=== PATIENT | female | born 1955 | race Caucasian/White ===

== ENCOUNTER → 2021-02-20 07:46 | Outpatient (CLI) | payer MEDICARE, SELFPAY ==
--- NOTE | 2021-02-20 07:59 | CDU_ITS ---
Reason For Study: NEAR SYCOPE Rt. Velocities/BP Lt. Velocities/BP Prox CCA 80/23 cm/sec. Prox CCA 83/23 cm/sec. Mid CCA 57/19 cm/sec. Mid CCA 64/17 cm/sec. Dist CCA 73/23 cm/sec. Dist CCA 62/25 cm/sec. Prox ICA 63/13 cm/sec. Prox ICA 45/15 cm/sec. Mid ICA 73/28+ cm/sec. Mid ICA 86/30 cm/sec. Dist ICA 81/34 cm/sec. Dist ICA 62/25 cm/sec. Rt. ICA/CCA = 1.1. Lt. ICA/CCA = 1.4. Prox ECA 71/20 cm/sec. Prox ECA 72/14 cm/sec. Rt. Vert. 43/13 cm/sec. Lt. Vert. 59/25 cm/sec. Right Extracranial There is homogeneous, smooth atherosclerotic plaque noted in the right common carotid artery. There is homogeneous, smooth atherosclerotic plaque noted in the right internal carotid artery. There is homogeneous, irregular atherosclerotic plaque noted in the right external carotid artery. Antegrade flow is noted in the right vertebral artery. There is homogeneous, smooth atherosclerotic plaque noted in the right bulb. Left Extracranial There is homogeneous, smooth atherosclerotic plaque noted in the left common carotid artery. There is homogeneous, smooth atherosclerotic plaque noted in the left internal carotid artery. There is homogeneous, smooth atherosclerotic plaque noted in the left external carotid artery. Antegrade flow is noted in the left vertebral artery. Procedure Carotid Duplex 42451. Exam performed in department. VL/Carotid Duplex Ultrasound Interpretation Summary Mild (<50%) stenosis right extracranial internal carotid. Mild (<50%) stenosis left extracranial internal carotid. Flow within the vertebral arteries is antegrade bilaterally. Ordering Physician: Reyna Soler Referring Physician: Reyna Soler Performed By: Sharla Bacon, RDCS, RVT
--- NOTE | 2021-02-20 08:00 | ECHOD_ITS ---
Reason For Study: Near Syncope Procedure This was a 2D Doppler, Color Flow transthoracic echocardiogram. Myocardial strain analysis was performed in this exam to aid in the assessment of cardiac function. Exam performed in department. Left Ventricle Normal LV size. Left ventricular systolic function is normal. The estimated ejection fraction is 60 %. Stage 1 diastolic dysfunction. Right Ventricle Normal RV size. Normal systolic function. Atria Normal left atrium. Normal right atrium. Mitral Valve Normal mitral valve. Tricuspid Valve Normal tricuspid valve. Mild tricuspid valve insufficiency. Pulmonary artery systolic pressure is 30 mmHg. Aortic Valve Normal aortic valve. Trisinus/trileaflet aortic valve. Pulmonic Valve Normal pulmonic valve. Great Vessels Normal aortic root. The pulmonary artery is normal size. Normal inferior vena cava. Pericardium/Pleural No pericardial effusion. MMode/2D Measurements & Calculations LVIDd: 4.6 cm IVSd: 0.94 cm Ao root diam: 3.2 cm LVIDs: 2.8 cm LVPWd: 0.87 cm LA dimension: 3.7 cm RVDd: 3.8 cm FS: 39.4 % LAV(MOD-bp): 53.8 ml LA A4 area: 16.0 cm2 RA A4 area: 19.4 cm2 LAV(MOD-bp) Indexed: 33.8 ml/m2 LAV(MOD-sp2): 44.6 ml LAV(MOD-sp4): 40.3 ml Time Measurements MV dec time: 0.22 sec Doppler Measurements & Calculations MV E max zhou: 47.2 cm/sec Lat Peak E' Zhou: 9.0 cm/sec Med Peak E' Zhou: 7.2 cm/sec MV A max zhou: 67.6 cm/sec E/E' lat: 5.2 E/E' med: 6.5 MV E/A: 0.70 MV V2 max: 86.8 cm/sec MV P1/2t max zhou: 66.9 cm/sec Ao V2 max: 99.0 cm/sec MV max P.0 mmHg MV P1/2t: 86.1 msec Ao max P.9 mmHg MV V2 mean: 37.8 cm/sec MV dec slope: 227.4 cm/sec2 MV mean P.71 mmHg MVA(P1/2t): 2.6 cm2 MV V2 VTI: 28.2 cm LV V1 max: 91.0 cm/sec PA V2 max: 84.7 cm/sec LV V1 max P.3 mmHg PI dec slope: 116.5 cm/sec2 TR max zhou: 258.6 cm/sec TR max P.8 mmHg ECHO/Echo Complete Interpretation Summary Normal LV size. Left ventricular systolic function is normal. The estimated ejection fraction is 60 %. Stage 1 diastolic dysfunction. The global longitudinal strain is normal. The global longitudinal strain = -18. 5 % (normal). Ordering Physician: Reyna Soler Referring Physician: Reyna Soler Performed By: Derrell Ortiz RCS
== END ==
PROVIDERS: PCP Internal Medicine; Referring Provider Internal Medicine; Visit Provider Internal Medicine
DX: R55 Syncope and collapse (principal)
CPT/HCPCS: 93225; 93226; 93306; 93880

== ENCOUNTER → 2021-02-22 07:11 | Outpatient (CLI) | payer MEDICARE, SELFPAY ==
--- NOTE | 2021-02-22 07:22 | MRI_ITS ---
EXAM: MR HEAD WITHOUT AND WITH INTRAVENOUS CONTRAST : 1955 CLINICAL INDICATION: DIZZINESS, NEAR SYNCOPE, hx breast ca TECHNIQUE: Multiplanar and multisequence MR images of the brain were obtained without and with intravenous contrast. This report was created using [employer] report [employer] technology. CONTRAST: 10ml IV Dotarem COMPARISON: None. FINDINGS: BRAIN AND EXTRA-AXIAL SPACES: Unremarkable. No intra- or extra-axial hemorrhage. No evidence of acute infarct. No intracranial mass or mass effect. There is preservation of the jimenez/white matter interface. Posterior fossa structures are unremarkable. Ventricles are appropriate for age. No hydrocephalus. Basal cisterns are patent. No abnormal contrast enhancement. SELLA: Unremarkable. Normal sella turcica, pituitary gland, infundibular stalk, optic chiasm and hypothalamus. AUDITORY SYSTEM: Unremarkable. The internal auditory canals are patent. BONES/JOINTS: Unremarkable. No discrete lytic or blastic abnormalities. SINUSES: Unremarkable as visualized. Clear. MASTOID AIR CELLS: Unremarkable as visualized. Clear. ORBITS: Unremarkable as visualized. Both globes, extraocular muscles, optic nerves and retrobulbar fat appear unremarkable. VASCULATURE: Unremarkable as visualized. Normal flow voids in the major intracranial circulation. MRI/Brain W/WO Contrast IMPRESSION: Normal MRI brain with and without contrast. at 1623 Reported and signed by: Star Frazier MD Electronically Signed: Star Frazier MD at 16:22 EDT Tel , Service support ,
[2021-02-22 07:50] LABS: CREATININE FINGERSTICK 0.7 mg/dL (0.55-1.02); EGFR FINGERSTICK > 60.0000 mL/min (>60)
== END ==
PROVIDERS: PCP Internal Medicine; Referring Provider Internal Medicine; Visit Provider Internal Medicine
DX: R55 Syncope and collapse (principal); R42 Dizziness and giddiness
CPT/HCPCS: 70553; A9575

== ENCOUNTER → 2021-12-01 | Outpatient (CLI) | payer MEDICARE, SELFPAY | END | disposition home or self-care (01) | LOC: LABSPEC 16:35 | PROVIDERS: PCP Internal Medicine; Referring Provider Internal Medicine Hematology & Oncology; Visit Provider Internal Medicine Hematology & Oncology | DX: D64.9 Anemia, unspecified (principal) | CPT/HCPCS: 86850; 86900; 86901; 86920; 86922 ==

== ENCOUNTER → 2021-12-04 | Outpatient (CLI) | payer MEDICARE, SELFPAY ==
[2021-12-04 09:12] VITALS: BP 98/56; PULSE 100; RESP 16; TEMP 36.9; O2SAT 97; BMI 19.6
[2021-12-04 09:49] VITALS: BP 104/57; PULSE 92; RESP 16; TEMP 37.2; O2SAT 97
[2021-12-04 10:49] VITALS: BP 113/58; PULSE 85; RESP 16; TEMP 37.1; O2SAT 100
[2021-12-04 11:33] VITALS: BP 109/60; PULSE 86; RESP 16; TEMP 36.9; O2SAT 100
== END | disposition home or self-care (01) ==
LOC: MEDOUTP 08:53
PROVIDERS: PCP Internal Medicine; Referring Provider Internal Medicine Hematology & Oncology; Visit Provider Internal Medicine Hematology & Oncology
DX: C78.01 Secondary malignant neoplasm of right lung (principal); C78.02 Secondary malignant neoplasm of left lung; C80.1 Malignant (primary) neoplasm, unspecified
CPT/HCPCS: 36430; 86850; 86900; 86901; 86920; 86922; J7030; P9016; A4216

== ENCOUNTER 2021-12-21 19:32 | Emergency (ER) | payer MEDICARE, SELFPAY ==
[2021-12-21 19:33] VITALS: BP 121/92; PULSE 105; RESP 16; TEMP 36.4; O2SAT 98; BMI 19.5
[2021-12-21 19:36] VITALS: BP 121/92; PULSE 105; RESP 16; TEMP 36.4; O2SAT 98
--- NOTE | 2021-12-21 19:57 | EX.ED.UPPERE ---
HPI History of Present Illness Chief Complaint: Upper Extremity Injury Narrative Narrative: Patient presents with her sisters because of hand pain and swelling and discoloration. She has history of metastatic breast carcinoma and is undergoing radiation therapy for tumors on her right shoulder and right upper extremity. She has had swelling of her right hand for at least 2 weeks. On 513, 13 days ago, she had an ultrasound performed which showed superficial thrombophlebitis of the right upper extremity. She was placed on Lovenox and takes it daily. They were concerned because they thought her right hand was discolored this evening. Upon arrival to the emergency department, they state that the discoloration has resolved. Her sisters state that they were told to get a Doppler because of the discoloration of her right hand that has spontaneously resolved. She denies any other symptoms. [facility] Medical History Breast cancer Home Medications enoxaparin 40 mg SUBCUT BID 12/21/21 [History Last Taken Unknown] Allergy/AdvReac Type Severity Reaction Status Date / Time No Known Allergies Allergy Verified 12/21/21 19:36 Social History Smoking Status: Never smoker ROS ROS ED ROS Narrative Constitutional: No fever, no chills. HEENT: No sore throat. No neck pain. No loss of vision. No rhinorrhea. Cardiovascular: No chest pain. No palpitations. No pedal edema. Respiratory: No cough, no shortness of breath. Abdominal: No abdominal pain. No nausea. No vomiting. Genitourinary: No dysuria. No hematuria. Musculoskeletal: Right hand pain, swelling, and discoloration. Discoloration has resolved. Neurologic: No headaches. No dizziness. No lightheadedness. Skin: No rash. Right hand discolored, resolved Psychiatric: No depression. No anxiety. EXAM Physical Exam Narrative Exam Narrative: Afebrile. Vital signs noted. HEENT: Normocephalic. Atraumatic. PERRL, EOMI. Neck soft and supple. No point tenderness or step off. Cardiovascular: Regular rate and rhythm. No murmurs, rubs, or gallops appreciated. Respiratory: No tachypnea. Lungs clear to auscultation bilaterally. Gastrointestinal: Abdomen soft, nontender, with normoactive bowel sounds. No rebound or guarding. Neurological: Awake. Alert. Nonfocal, nonlateralizing. Skin: No rash. Normal color. No pallor. Musculoskeletal: No pedal edema. Positive edema of right hand. Palpable radial pulse. No noted discoloration. Multiple tumors on right upper arm. Range of motion of right shoulder limited secondary to large tumors. 1 large tumor on right shoulder. Const Vital Signs: 12/21/21 19:33 12/21/21 19:36 Temperature 97.5 F L 97.5 F L Temperature Source Temporal Temporal Pulse Rate 105 H 105 H Respiratory Rate 16 16 Blood Pressure 121/92 H 121/92 H Blood Pressure Mean 101 101 Pulse Ox 98 98 Oxygen Delivery Method Room Air Room Air MDM MDM MDM Narrative Medical decision making narrative: Patient does have a palpable radial pulse. She does have noted swelling. She is already on Lovenox. I had a lengthy discussion with the patient and her sisters. Nursing was able to Doppler a good radial pulse. We will attempt to obtain a venous duplex of her right upper extremity. I do feel that she may have swelling secondary to compression of the veins of her right upper extremity secondary to these large metastatic tumors. However, ultrasound of the upper extremity is unable to be performed in the emergency department at this hour. I will write her an order to have it performed tomorrow. At this point in time, given that she has a strong radial pulse, I feel she be discharged safely home with follow-up. Return instructions to the emergency department were reviewed. She will continue her Lovenox. Disposition is discharged home in stable condition. Discharge Plan Triage Chief Complaint: Upper Extremity Injury ED Provider: Melvin Quintana Dx/Rx/DC Orders Clinical Impression: Swelling of right hand, Metastatic breast carcinoma Instructions: ED Peripheral Edema, Unilateral Prescriptions: No Action enoxaparin 40 mg/0.4 mL syringe 40 mg subcut BID RF: 0 Other Ambulatory Orders: Venous Duplex US, Unilateral (Routine) Facility: [facility] - Location: [facility] Ordered By: Melvin Quintana Primary Care Provider: Reyna Soler Referrals: Reyna Soler DO [Primary Care Provider] - Activity Restrictions/Additional Instructions: You have a strong radial pulse on your right wrist. Your hand is normal color, but still swollen. Have ultrasound of your right upper extremity performed tomorrow. Follow-up with your doctors as soon as possible. Disposition Disposition: Home, Self Care
== END 2021-12-21 21:08 | disposition home or self-care (01) ==
PROVIDERS: Emergency Provider Emergency Medicine; PCP Internal Medicine; Visit Provider Emergency Medicine
DX: M79.89 Other specified soft tissue disorders (principal); C79.9 Secondary malignant neoplasm of unspecified site; C50.919 Malignant neoplasm of unspecified site of unspecified female breast; Z79.01 Long term (current) use of anticoagulants
CPT/HCPCS: 99283

== ENCOUNTER 2021-12-22 12:04 | Emergency (ER) | payer MEDICARE, SELFPAY ==
[2021-12-22 12:05] VITALS: BP 116/58; PULSE 96; RESP 15; TEMP 36.4; O2SAT 99; BMI 19.5
--- NOTE | 2021-12-22 12:27 | EDS_ITS ---
HPI History of Present Illness Chief Complaint: Wound Informant: patient Narrative Narrative: Patient presents secondary to bleeding from right axillary wound. She has a history of metastatic breast cancer with lesions to the right chest and right arm. She was seen in the ER yesterday secondary to arm swelling with hand discoloration. She came in today for a venous Doppler of her arm. While they were scanning her a scab was knocked off one of the little nodules in her axilla and was bleeding. When cardiovascular staff called Dr. Posey he asked that the patient come to the ER for evaluation of the bleeding wound. [facility] Medical History Breast cancer Home Medications enoxaparin 40 mg SUBCUT BID 12/21/21 [History Last Taken Unknown] Allergy/AdvReac Type Severity Reaction Status Date / Time No Known Allergies Allergy Verified 12/22/21 12:07 Social History Smoking Status: Never smoker ROS ROS ED Constitutional Constitutional ED: Denies chills or fever(s) Eyes Eyes: Denies change in vision ENT ENT ED: Denies sore throat Cardiovascular Cardiovascular: Denies chest pain Respiratory/Chest Respiratory/Chest: Denies cough or dyspnea Gastrointestinal Gastrointestinal: Denies abdominal pain, nausea or vomiting Musculoskeletal Musculoskeletal: Denies back pain Neurologic Neurologic: Denies headache(s) or weakness Allergic/Immunologic Allergic/Immunologic ED: Denies urticaria EXAM Physical Exam Const Vital Signs: 12/22/21 12:05 Temperature 97.6 F L Temperature Source Temporal Pulse Rate 96 Respiratory Rate 15 Blood Pressure 116/58 L Blood Pressure Mean 77 Pulse Ox 99 Oxygen Delivery Method Room Air Positive well nourished and well developed General Appearance ED: well developed HEENT Reports moist mucous membranes Eyes PERRL and EOMs intact bilaterally Neck supple Chest Wall inspection of chest normal and palpation of chest normal Resp normal respiratory effort and clear to auscultation bilaterally Cardio regular rate and regular rhythm GI non-tender Palpation: soft Extremity Extremity Narrative: Nodules and tumors noted to the upper portion of the right upper extremity, chest wall, axilla. There is a small nodule in the axilla with scab in place. No active bleeding at this time. Mild right hand edema noted. Neuro oriented x3 Sensorium / Orientation: alert MDM MDM Treatment and Re-Evaluation Narrative: Wound is cleansed. Surgifoam and occlusive dressing is applied. Wound is rechecked after 20 minutes and reveals no further bleeding. Patient be discharged with family. Discharge Plan Triage Chief Complaint: Wound ED Provider: Jacqueline Leos Dx/Rx/DC Orders Clinical Impression: Visit for wound check Instructions: Wound Care Prescriptions: No Action enoxaparin 40 mg/0.4 mL syringe 40 mg subcut BID RF: 0 Primary Care Provider: Reyna Soler Referrals: Reyna Soler DO [Primary Care Provider] - Vahid Posey DO [STAFF PHYSICIAN] - Keep [facility] appointment Disposition Disposition: Home, Self Care
[2021-12-22 13:16] VITALS: RESP 16
== END 2021-12-22 13:16 | disposition home or self-care (01) ==
LOC: ED 12:47
PROVIDERS: Emergency Provider Emergency Medicine; PCP Internal Medicine; Visit Provider Emergency Medicine
DX: S41.101A Unspecified open wound of right upper arm, initial encounter (principal); R60.0 Localized edema; X58.XXXA Exposure to other specified factors, initial encounter; Y92.239 Unspecified place in hospital as the place of occurrence of the external cause; Z79.01 Long term (current) use of anticoagulants; M79.89 Other specified soft tissue disorders
CPT/HCPCS: 93971; 99282; A4216

== ENCOUNTER → 2021-12-22 | Outpatient (CLI) | payer MEDICARE, SELFPAY ==
--- NOTE | 2021-12-22 10:40 | VDUE_ITS ---
Reason For Study: Swelling Right Proximal Right jugular vein is spontaneous, widely patent, phasic, with no intraluminal echogenicity noted. Right Sublcavan vein with rouleaux flow noted, little continuous flow, noncompressible. Right Lower Arm Right radial vein is compressible. Right ulnar vein is compressible. Right Arm Right Axillary vein with rouleaux flow noted. Axillary vein is compressible. Right brachial vein is compressible. Right cephalic vein is compressible. Right basilic vein is compressible. Patient Safety Preliminary report to [place]at[place] RAE @ Dr. Posey office. Per Dr. Posey, take patient ED for wound care of area that was bleeding. VL/Venous Duplex US, Unilateral Interpretation Summary Abnormal flow noted in the right subclavian vein which is not compressible conc erning for acute deep vein thrombosis. Abnormal flow right axillary vein with sluggish circular flow Patent and compressible right upper extremity cephalic and basilic superficial veins. Ordering Physician: Melvin Quintana Referring Physician: Reyna Soler D.O. Performed By: Erin Garcia RVT ?
== END | disposition home or self-care (01) ==
LOC: CVS 10:38
PROVIDERS: PCP Internal Medicine; Referring Provider Emergency Medicine; Visit Provider Emergency Medicine
DX: M79.89 Other specified soft tissue disorders (principal)
CPT/HCPCS: 93971

== ENCOUNTER → 2022-04-06 | Outpatient (CLI) | payer MEDICARE, SELFPAY ==
--- NOTE | 2022-04-06 | FLU_PTH ---
PATIENT: ARISTIDES JUNE LOC: [facility]#:[id number] AGE/SX: 66/F ROOM: RE04/06/[address]: Dr. Vahid Posey DO : 1955 BED: DIS: 04/06/2022 SPEC #: [id number] RECD: 04/06/22 14:26 STATUS: RICKY LUCIANA #: [id number] NESSA: 04/06/22 00:[address]: Vahid Posey DEPT: CYTOLOGY RECD BY: Samaria Pugh ENTERED: 04/09/22 08:33 SP TYPE: Fluid OTHR DR: Dr. Reyna Soler DO Tissues: THORACIC FLUID Procedures: Special Stain Group II Surgery Specimen Level IV Cytospin Fluid HEADER OPERATION: Ultrasound-guided thoracentesis, right PRE-OP DIAGNOSIS: Right pleural effusion TISSUE SUBMITTED: Thoracentesis fluid for cytology DIAGNOSIS CYTOLOGY Thoracentesis fluid for cytology (cytospin and cell block): Malignant cells present derived from metastatic poorly differentiated non-small cell carcinoma. See comment. SJ:molly 04/10/2022 COMMENT Immunohistochemistry ([id number]) supports the above diagnosis. IHC profile is noncontributory for primary site of origin. Correlation with clinical, radiologic findings and appropriate follow up are necessary. CYTOLOGY STUDY Slides are reviewed. CYTOLOGY GROSS Received is 50 ml of red cloudy fluid labeled with the patient's name and and designated per the requisition as thoracentesis. Submitted for cytology preparation including cell block. / molly 04/09/2022 TC:0 CPT: 77090, 86919
--- NOTE | 2022-04-06 | IMM_PTH ---
PATIENT: ARISTIDES JUNE LOC: [facility]#:[id number] AGE/SX: 66/F ROOM: RE04/06/[address]: Dr. Vahid Posey DO : 1955 BED: DIS: 04/06/2022 SPEC #: [id number] RECD: 04/10/22 12:13 STATUS: RICKY REQ #: [id number] NESSA: 04/06/22 00:[address]: Vahid Posey DEPT: IMMUNOHISTOCHEMISTRY RECD BY: Alia Dwyer ENTERED: 04/10/22 12:15 SP TYPE: IMMUNO OTHR DR: Dr. Reyna Soler DO Tissues: THORACIC FLUID Procedures: RCC (add) Mickey Ret (add) CK20 (add) CK5-6 (add) CK7 (add) CK8 (add) E-CAD (add) HEP PAR (add) HER2 CHIRAG (add) MACRO (add) MAMM (add) NY (add) TTF1 (add) Vimentin (add) Pankeratin (add) GATA3 (add) P40 (add) ER (initial) PHYSICIAN & INSTITUTION [address] [address] SPECIMEN INFORMATION: Tissue Source: Thoracentesis fluid Clinical Info: Right pleural effusion Specimen Number: [id number] CPT code: 00893, 62946 x17 METHODOLOGY: Deparaffinized sections of prefer/formalin-fixed tissue or PAP/DQ stained slides are incubated with monoclonal/polyclonal antibodies/oligonucleotide probes. Localization is made via biotin free immunoperoxidase method. Appropriate controls are performed and reacted as expected. Results on target cell population are indicated in the following table: RESULTS: ANTIBODY / CLONE RESULT ER (6F11) negative NY (1E2) negative Her-2neu (CB11) negative E-Cad (ECH-6) positive Mammaglobin (31A5) positive, focal, weak GATA3 (L50-823) negative AE1-3 (AE1/AE3/PCK26) positive CK7 (OV-TL12/30) positive CK8 (35ojcyX28) positive CK20 (KS20.8) negative Vimentin (V9) negative Macro (HAM-56) negative TTF-1 (8G7G3/1) negative HepPar (OCh1E5) positive RCC (PN-15) positive, a few cells CALRET (polyclonal) negative CK5-6 (D5 & 1684) positive P40 (BC28) negative These tests were developed and their performance characteristics determined by [facility]. They may not have been cleared or approved by the U.S. Food and Drug Administration. The FDA has determined that such clearance or approval is not necessary. The above immunohistochemical/dualISH markers are ordered and reviewed by the Pathologist. INTERPRETATION: Thoracentesis fluid (cell block): Malignant cells present derived from metastatic poorly differentiated nonsmall cell carcinoma. See comment. SJ:molly 04/11/2022 Comment: IHC profile is noncontributory for primary site of origin. Clinical correlation is necessary.
--- NOTE | 2022-04-06 13:08 | US_ITS ---
PROCEDURE: ULTRASOUND GUIDED THORACENTESIS. DATE: 04/06/2022. INDICATION: Female, 66 years old. Right pleural effusion. PHYSICIAN: Renzo Rose M.D. PROCEDURE: The risks, benefits, and alternatives to the procedure were explained to the patient. The specific risks of bleeding, infection, and pneumothorax requiring chest tube insertion were discussed and accepted. Written informed consent was obtained. Ultrasonographic evaluation of the right lower pleural space was carried out. An adequate pocket was identified. The patient was placed in the sitting, upright position. The overlying skin was prepped and draped in sterile fashion. 1% lidocaine was administered subcutaneously for local anesthesia. Under ultrasound guidance, a 5 Cypriot thoracentesis needle/catheter system was advanced into the right posterior lower pleural fluid collection. Approximately 1610 mL of blood-tinged fluid was drained. The catheter was removed, and a sterile dressing was applied. A specimen was collected and sent to the laboratory for analysis, as requested by the referring clinician. The patient tolerated the procedure well. A chest x-ray was ordered. US/Thoracentesis W US IMPRESSION: Ultrasound-guided right thoracentesis. Electronically Signed: Renzo Rose MD at 14:32 EDT ,
[2022-04-06 13:51] VITALS: BP 103/57; BP 109/53; BP 122/57; PULSE 120; PULSE 121; PULSE 125; RESP 18; TEMP 37.2; TEMP 37.4; O2SAT 92; O2SAT 93
[2022-04-06] MEDS: Lidocaine 2% (10 ml mdv) 10 ML Vial INFILT (13:59)
--- NOTE | 2022-04-06 14:11 | RAD_ITS ---
STUDY: X-RAY CHEST REASON FOR EXAM: Female, 66 years old. Post thora TECHNIQUE: AP inspiration and expiration views. COMPARISON: Comparison is made with prior study dated 04/19/2021. FINDINGS: The patient is status post right thoracentesis. There is no evidence of pneumothorax. Blunting of both costophrenic angles remain. A left-sided Port-A-Cath is seen with the tip in the right atrium. Multiple bilateral pulmonary nodules worse in the right hemithorax. RAD/Chest Insp/Exp 2 View IMPRESSION: Status post right thoracentesis. No evidence of pneumothorax. Electronically Signed: Renzo Rose MD at 14:33 EDT ,
== END | disposition home or self-care (01) ==
PROVIDERS: PCP Internal Medicine; Referring Provider Internal Medicine Hematology & Oncology; Visit Provider Internal Medicine Hematology & Oncology
DX: J90 Pleural effusion, not elsewhere classified (principal); C78.01 Secondary malignant neoplasm of right lung; C78.02 Secondary malignant neoplasm of left lung
CPT/HCPCS: 32555; 71046; 88108; 88305; 88313; 88341; 88342